=== PATIENT | male | born 2000 | race Caucasian/White ===

== ENCOUNTER → 2020-05-05 14:37 | Outpatient (CLI) | payer OTHER, SELFPAY ==
--- NOTE | 2020-05-05 14:40 | DI.RAD.S_ITS ---
PROCEDURE: XR CHEST 2V INDICATIONS: history of spontaneous pneumothorax TECHNIQUE: 2 views of the chest were acquired. COMPARISON: [facility], CR, XR CHEST 2 VIEWS, 08/09/2017, 14:41. [facility], CR, XR CHEST 1 VIEW, 08/09/2017, 16:55. [facility], CR, XR CHEST 2 VIEWS, 08/13/2017, 15:28. FINDINGS: Surgical changes and devices: None. Lungs and pleura: Lungs are clear. No pleural effusions . Small left apical pneumothorax. Mediastinum: Mediastinal contours are normal. Heart size is normal. Bones and chest wall: No suspicious bony abnormalities. Soft tissues appear unremarkable. IMPRESSION: Small left apical pneumothorax. Critical findings were immediately and personally telephoned and discussed with Indy Merino PAC at 1515 hours 05/05/20 Dictated by: Gt Real M.D. on 05/05/2020 at 14:58 Approved by: Gt Real M.D. on 05/05/2020 at 15:16
== END ==
PROVIDERS: Referring Provider Physician Assistant; Visit Provider Physician Assistant
DX: J93.83 Other pneumothorax (principal); Z87.09 Personal history of other diseases of the respiratory system
CPT/HCPCS: 71046

== ENCOUNTER → 2020-05-08 13:58 | Outpatient (CLI) | payer OTHER, SELFPAY ==
--- NOTE | 2020-05-08 13:59 | DI.RAD.S_ITS ---
PROCEDURE: XR CHEST 2V INDICATIONS: re-evaluate pneumothorax from 05/06 on left TECHNIQUE: 2 views of the chest were acquired. COMPARISON: [facility], , XR CHEST 2V, 05/05/2020, 14:40. FINDINGS: Surgical changes and devices: None. Lungs and pleura: Trace pneumothorax persists, decreased when compared with the study dated May 05, 2020. No new acute airspace opacities or pleural effusion. Mediastinum: Mediastinal contours are normal. Heart size is normal. Bones and chest wall: No suspicious bony abnormalities. Soft tissues appear unremarkable. IMPRESSION: Trace pneumothorax persists, decreased from the prior study. Dictated by: Nayeli Hickman M.D. on 05/08/2020 at 14:27 Approved by: Nayeli Hickman M.D. on 05/08/2020 at 14:28
== END ==
PROVIDERS: Referring Provider Physician Assistant; Visit Provider Physician Assistant
DX: J93.83 Other pneumothorax (principal)
CPT/HCPCS: 71046

== ENCOUNTER 2020-09-05 12:52 | Observation (INO) | payer OTHER, BC, SELFPAY ==
[2020-09-05] VITALS (14 sets, daily range): BP systolic 113–145; BP diastolic 60–92; PULSE 57–86; RESP 12–22; TEMP 36.3–36.7; O2SAT 98–100; BMI 16.9
--- NOTE | 2020-09-05 12:59 | DI.RAD.S_ITS ---
PROCEDURE: XR CHEST 1V INDICATIONS: Flu like symptoms TECHNIQUE: One view of the chest was acquired. COMPARISON: [facility], CR, XR CHEST 2V, 05/08/2020, 13:49. FINDINGS: Surgical changes and devices: None. Lungs and pleura: Lungs are clear. No pleural effusions or pneumothorax. Mediastinum: Mediastinal contours appear normal. Heart size is normal. Bones and chest wall: No suspicious bony lesions. Overlying soft tissues appear unremarkable. IMPRESSION: No evidence acute pulmonary process. Dictated by: Jarrell Carvalho M.D. on 09/05/2020 at 13:29 Approved by: Jarrell Carvalho M.D. on 09/05/2020 at 13:34
--- NOTE | 2020-09-05 13:31 | ED_ITS ---
HPI - General Adult General Chief complaint: Shortness of Breath/Dyspnea Stated complaint: spontaneous pneumothorax Time Seen by Provider: 09/05/20 13:12 Source: patient Mode of arrival: Ambulatory History of Present Illness HPI narrative: 19-year-old gentleman with a history of 5 spontaneous pneumothorax all occurring on the left side each about once a year none of which have required chest tube. He presents with 48 hours of right-sided chest pain. This initially occurred at rest has been present for the past 2 days and not even painful enough to require ibuprofen or Tylenol. Was concerned that it was a another pneumothorax this time on the right side and he presents to the emergency room to see if additional workup would be recommended. He describes no fevers, dyspnea, cough, abdominal pain, palpitations, lower extremity edema. He is slender, 6 ft tall that does not have specific marfans features. There is not a history of spontaneous pneumothorax in his family and he denies tobacco as well as marijuana use. Related Data Home Medications Medication Instructions Recorded Confirmed No Known Home Medications 05/05/20 09/05/20 Allergies Allergy/AdvReac Type Severity Reaction Status Date / Time No Known Drug Allergies Allergy Verified 09/05/20 13:04 Review of Systems Review of Systems ROS Unobtainable: All systems reviewed & are unremarkable except as noted in HPI and below Patient History Medical History History of pneumothorax Social History household members: friend(s) Smoking Status: Never smoker Smoking Status: Never smoker Substance Use Type: does not use Exam Narrative Exam Narrative: General: Healthy appearing, in no acute distress. Able to give a complete and coherent history. Well-nourished well-developed HEENT: Moist mucous membranes, normal sclera with reactive pupils, Neck: No JVD, supple Respiratory: Lungs are clear to auscultation, slight decreased sounds on the right side with a slight respiratory rub mid axillary lower right. No wheezing. No retractions able to speak in full sentences. Chest: No subcutaneous air Cardiac: Regular rate and rhythm no murmurs no bruits Abdomen: Soft, nontender, good bowel tones, no flank pain Skin: Warm and dry, no rashes Neurologic: Grossly neurologically intact with no obvious asymmetries or abnormalities Extremities: No trauma, well perfused Psych: Cooperative, appropriate insight and affect Initial Vital Signs Initial Vital Signs: Vital Signs Temperature 98.0 F 09/05/20 12:56 Pulse Rate 68 09/05/20 12:56 Respiratory Rate 12 09/05/20 12:56 Blood Pressure 145/92 H 09/05/20 12:56 Pulse Oximetry 99 09/05/20 12:56 Course Orders Ordered: ED Orders 09/05/20 12:59 XR chest 1V Stat 09/05/20 14:27 COVID19 Stat Acetaminophen (Acetaminophen 325 Mg Tablet) 650 mg PO Q6HR PRN PRN Reason: Pain, Mild (1-3) Enoxaparin Sodium (Enoxaparin 40 Mg/0.4 Ml Syringe) 40 mg SUBCUT DAILY CASTRO Naloxone HCl (Naloxone 0.4 Mg/Ml Vial) 0.2 mg IV Q2MIN PRN PRN Reason: Opiate Reversal Discontinued Medications Sodium Chloride (Normal Saline 0.9%) 1,000 mls @ 1,000 mls/hr IV BOLUS ONE Stop: 09/05/20 15:29 Last Infusion: 09/05/20 15:41 Dose: 0 mls/hr Documented by: Admin: 09/05/20 14:35 Dose: 1,000 mls/hr Documented by: MALGORZATA Vital Signs Vital signs: Vital Signs - 8 hr 09/05/20 12:56 09/05/20 13:51 09/05/20 14:00 Temperature 98.0 F Pulse Rate 68 65 59 L Respiratory Rate 12 Blood Pressure 145/92 H 125/67 Pulse Oximetry 99 100 100 09/05/20 14:15 09/05/20 14:30 09/05/20 14:45 Temperature Pulse Rate 62 86 63 Respiratory Rate Blood Pressure 122/70 135/81 129/75 Pulse Oximetry 100 100 100 09/05/20 15:00 09/05/20 15:15 Temperature Pulse Rate 57 L 80 Respiratory Rate Blood Pressure 132/80 129/79 Pulse Oximetry 100 98 Medical Decision Making Lab Data Labs: Lab Results 09/05/20 Range/Units 14:27 SARS-CoV-2 (PCR) Negative (Negative) Imaging Data Chest x-ray: Radiologist's Impression: FINDINGS: Surgical changes and devices: None. Lungs and pleura: Lungs are clear. No pleural effusions or pneumothorax. Mediastinum: Mediastinal contours appear normal. Heart size is normal. Bones and chest wall: No suspicious bony lesions. Overlying soft tissues appear unremarkable. IMPRESSION: No evidence acute pulmonary process. Dictated by: Jarrell Carvalho M.D. on 09/05/2020 at 13:29 Approved by: Jarrell Carvalho M.D. on 09/05/2020 at 13:34 ADDENDUM: There is a mild to moderate right apical pneumothorax. Findings were discussed with Dr. Bowen on 09/05/2020 at 1427 hours Dictated by: Jarrell Carvalho M.D. on 09/05/2020 at 14:47 MDM Narrative Medical decision making narrative: 19-year-old gentleman presents with right- sided chest pain that he Is concerned may be a spontaneous pneumothorax. He has had 5 similar episodes all on the left side. None of these have needed to be treated with chest tubes. Initial chest exam does suggest a small right-sided pneumothorax no tension physiology. Care is reviewed with Dr Baires, General surgery. Because symptoms have been present for 48 hours and do not seem to be increasing he will be admitted and observed without chest tube placement at this time. Discharge Plan Departure Patient Disposition: Admitted as Observation Clinical Impression: Spontaneous pneumothorax Admit Date/Time: 09/05/20 15:21 Admit Provider: Deven Patiño
--- NOTE | 2020-09-05 14:31 | PC.NURSE ---
h/o spontaneous pneumonthorax on Left, never on right. Has always resolved w/o intervention.
[2020-09-05] MEDS: SODIUM CHLORIDE 0.9% 1,000 ML 1000 ML IV (14:35)
[2020-09-05 15:02] LABS: COVID19 -Nasal RAPID Negative (Negative)
--- NOTE | 2020-09-05 15:29 | P.HP_ITS ---
History of Present Illness History of Present Illness Date Patient Seen: 09/05/20 Time Patient Seen: 15:29 Date of Onset of Symptoms: 09/03/20 Chief complaint: spontaneous pneumothorax Narrative: Patient is a gentleman who has had multiple spontaneous pneumothoraces on the left side. He has never required a chest tube in usually just stays at home and have set out he says. However he developed shoulder pain and a little shortness of breath 2 days ago. He went to work and came home and basically tolerated this comfort today it has been much more tolerable and the pain when he takes a deep breath has reduced. He came to the emergency room and was found to have a pneumothorax and I was asked to see him. All of his prior pneumothoraces were on the left. This 1 is on the right. He does not smoke. He never has. Patient History Medical History History of pneumothorax Family & Social History Safety & Behavioral: Feels Safe in Current Yes Environment Been Physically Hurt or No Threatened By a Person Tobacco & Substance use: Smoking Status Never smoker Substance Use Type does not use Meds Home Medications and Allergies Home Medications Medication Instructions Recorded Confirmed Type No Known Home Medications 05/05/20 09/05/20 History Allergies Allergy/AdvReac Type Severity Reaction Status Date / Time No Known Drug Allergies Allergy Verified 09/05/20 13:04 Review of Systems Review of Systems Narrative: Patient denies double vision pain is eyes earache sore throats trouble swallowing or tooth aches. No cough cold or asthma. No heart problems or murmurs. No abdominal pain black or bloody bowel movements dysuria or hematuria. No seizures or blackouts. Nose exam id or depression. Is on no medications. Exam Vital Signs (past 8 hours): - 09/05/20 12:56 09/05/20 13:51 09/05/20 14:00 Temperature 98.0 F Pulse Rate 68 65 59 L Respiratory Rate 12 Blood Pressure 145/92 H 125/67 Pulse Oximetry 99 100 100 09/05/20 14:15 09/05/20 14:30 09/05/20 14:45 Temperature Pulse Rate 62 86 63 Respiratory Rate Blood Pressure 122/70 135/81 129/75 Pulse Oximetry 100 100 100 09/05/20 15:00 Temperature Pulse Rate 57 L Respiratory Rate Blood Pressure 132/80 Pulse Oximetry 100 Oxygen Delivery Method Nasal Cannula Oxygen Flow Rate 6 Narrative Exam Narrative: Tall thin 19-year-old in no distress. There was eyes are nonicteric. Pupils equal round reactive to light. Conjunctiva pink ears without lesion. There are no nodes in the neck supraclavicular areas. Trachea is midline mobile. Thyroid is not enlarged. Lungs are clear to auscultation without rales or rhonchi. There might be a slight decrease in breath sounds on the right compared to the left. Good air movement bilaterally. Heart regular rate and rhythm without murmur gallop. Abdomen is scaphoid soft nontender without mass. Liver and spleen are not enlarged. Skin is 2+ texture and turgor no open lesions appreciated.. He is alert and oriented x3. Speech rate and content are appropriate affect is appropriate. Objective Imaging Chest x-ray: My impression: Significant right-sided pneumothorax. Left side normal. No shift of the midline. Labs Labs: Laboratory Results - last 24 hr 09/05/20 14:27 SARS-CoV-2 (PCR) Negative Assessment & Plan Assessment & Plan narrative: Patient with a right-sided spontaneous pneumothorax. Delayed presentation. He has a significant pneumothorax but since we are now at least 2 days into this event, not certain a chest tube was necessary. He is otherwise healthy. Will bring in for observation. X-ray later today. If lung remains at its present level or improved will observe. If it seems to be deteriorating significantly will place a pigtail chest tube. Time Spent With Patient Time with patient: Greater than 35 minutes (Time spent reviewing record an x- rays including reviewing with the radiologist 10 minutes. History physical exam another 20 minutes and 5 minutes to document and 5 minutes to write orders.)
--- NOTE | 2020-09-05 18:00 | DI.RAD.S_ITS ---
PROCEDURE: XR CHEST 1V INDICATIONS: Follow-up on pneumothorax. TECHNIQUE: One view of the chest was acquired. COMPARISON: [facility], CR, XR CHEST 1V, 09/05/2020, 13:09. FINDINGS: Surgical changes and devices: None. Lungs and pleura: Lungs are clear. No change in small right upper lobe pneumothorax. No developing mediastinal shift. Mediastinum: Mediastinal contours appear normal. Heart size is normal. Bones and chest wall: No suspicious bony lesions. Overlying soft tissues appear unremarkable. IMPRESSION: 1. Stable appearance to small right pneumothorax. No evidence of tension. Dictated by: Cara Rodrigues M.D. on 09/05/2020 at 16:43 Approved by: Cara Rodrigues M.D. on 09/05/2020 at 16:45
--- NOTE | 2020-09-05 19:19 | PC.NURSE ---
Approximately 1900 Dr. Baires at bedside, turned off patient's oxygen.
[2020-09-06 05:22] VITALS: BP 123/58; PULSE 52; RESP 16; TEMP 36.4; O2SAT 99
--- NOTE | 2020-09-06 07:27 | DI.RAD.S_ITS ---
PROCEDURE: XR CHEST 1V INDICATIONS: Follow-up pneumothorax TECHNIQUE: One view of the chest was acquired. COMPARISON: [facility], CR, XR CHEST 1V, 09/05/2020, 16:27. FINDINGS: Surgical changes and devices: None. Lungs and pleura: Lungs are clear. No pleural effusions. Right-sided pneumothorax is stable. Mediastinum: Mediastinal contours appear normal. Heart size is normal. Bones and chest wall: No suspicious bony lesions. Overlying soft tissues appear unremarkable. IMPRESSION: Stable right-sided pneumothorax. Dictated by: Grisel Pang MD, PhD on 09/06/2020 at 8:10 Approved by: Grisel Pang MD, PhD on 09/06/2020 at 8:10
--- NOTE | 2020-09-06 07:30 | DI.CT.S_ITS ---
PROCEDURE: CT CHEST W CON INDICATIONS: hx left pneumothorax now with right pneumo TECHNIQUE: After the administration of intravenous contrast, 5 mm thick sections acquired from the pulmonary apices to the posterior costophrenic angles. 1 mm axial lung, 5 mm thick coronal and sagittal reformats and 7 mm axial MIP were acquired. For radiation dose reduction, the following was used: automated exposure control, adjustment of mA and/or kV according to patient size. COMPARISON: [facility], CR, XR CHEST 2 VIEWS, 08/13/2017, 15:28. [facility], CR, XR CHEST 2 VIEWS, 08/09/2017, 14:41. [facility], CR, XR CHEST 1V, 09/05/2020, 13:09. [facility], CR, XR CHEST 1V, 09/05/2020, 16:27. [facility], CR, XR CHEST 1V, 09/06/2020, 5:13. FINDINGS: Image quality: Excellent. Lungs and pleura: There is a small right-sided pneumothorax seen. Mild subpleural bleb formation can be seen at the lung apices, right worse than left, as on series 3, image 33, and on series 5, image 33. There is no left-sided pneumothorax seen. No acute air space opacities. No pleural effusions. Central and peripheral airways are patent and normal in caliber. Mediastinum: Heart size is normal. No pericardial effusion. No mediastinal or hilar adenopathy by size criteria. Thoracic aorta and central pulmonary arteries are normal in size. Esophagus is normal in caliber. No hiatal hernia. Bones and chest wall: No suspicious bony lesions. No vertebral body compression fractures. No axillary or supraclavicular adenopathy by size criteria. Thyroid gland demonstrates no significant abnormality. Abdomen: Visualized upper abdominal solid organs appear normal. Upper abdominal bowel loops are normal in caliber. IMPRESSION: Small right-sided pneumothorax. Subpleural bleb formation can be seen involving both lung apices, right worse than left. Dictated by: Joey Holt M.D. on 09/06/2020 at 8:08 Approved by: Joey Holt M.D. on 09/06/2020 at 8:11
[2020-09-06 08:00] VITALS: BP 128/61; PULSE 73; RESP 17; TEMP 36.6; O2SAT 100
[2020-09-06 08:39] LABS: BUN Creatinine Ratio 15.5 (6-22); Blood Urea Nitrogen 13 mg/dL (9-20); Calcium 9.7 mg/dL (8.4-10.2); Carbon Dioxide 27 mmol/L (22-32); Chloride 104 mmol/L (98-107); Estimated Glomerular Filt Rate > 60.0 mL/min (>60); Glucose 78 mg/dL (70-100); HEMOLYSIS < 15 (0-50); Potassium 3.8 mmol/L (3.4-5.1); Sodium 138 mmol/L (137-145)
[2020-09-06] MEDS: ENOXAPARIN 40 MG/0.4 ML SYRINGE SUBCUT (09:31)
[2020-09-06] MEDS: SODIUM CHLORIDE 0.9% FLUSH 10 ML IV (09:32)
--- NOTE | 2020-09-06 11:54 | CM.DANOTE ---
DCP ASSESSMENT: Patient is a pleasant 19 Year-old male who was admitted for a spontaneous pneumothorax. Patient declines having a PCP. Primary payer sources is [facility], [employer] management. ENVIRONMENTAL SERVICES PROJECT MANAGER Student met with patient at bedside this date, he was alert and oriented x4. Provided education on role of SW and d/c planning and left contact information on white board. Patient enquired about how to establish a PCP for future follow-up visits. Provided a list of local providers to patient. Patient reported he is independent with ADL?s including driving. Patient?s father Skyler Monteiro will provide transportation at time of D/C. Patient anticipates D/C home when stable. PLAN: Anticipate D/C home when medically stable. CM Team to continue to follow. LAQUITA Gaytan MSW Student Discharge Planning/Care Management CM Discharge Assessment Start: 09/06/20 10:50 Freq: Status: Active Protocol: Document 09/06/20 10:50 AL (Rec: 09/06/20 10:53 AL [id number]) Discharge Planning Assessment Assigned Admissions Gate Attendant LAQUITA Dickens Student Contact Information Skyler Monteiro, # [phone] Advance Directives? No History Provided By Patient,Medical Record Has Patient been admitted in last 30 No days? Prior Living Arrangements Apartment/Condo Household Members friend(s) Type of transporation used prior to Drives own vehicle admit Independent with ADL's Yes Is patient alert and oriented? Yes Caregiver for Another No Barriers to Discharge No Discharge Plan Home Transportation Arrangement Patients father Skyler Monteiro will provide transportation upon D/C Referrals Initiated None needed Whiteboard Updated in Patient Room with Yes name and ext. # of Admissions Gate Attendant
[2020-09-06 12:00] VITALS: BP 120/77; PULSE 98; RESP 17; TEMP 36.7; O2SAT 97
--- NOTE | 2020-09-06 14:32 | PC.NURSE ---
Discharge: Feels ready to d/c home. has been up and amb indep in room, gait steady. O2 sat is usually 100%. No sob. Seen by Dr. Patiño and given d/c instructions. Reviewed d/c packet. Reviewed sxs of pneumo, pt is aware his pneumo has not resolved. He is to immed return to the ED for any sob, sxs of his pneumo worsening. He verb understanding. Pt d/c home via auto.
--- NOTE | 2020-09-06 15:30 | P.DS_ITS ---
History of Present Illness History of Present Illness Chief complaint: spontaneous pneumothorax Narrative: Patient is a gentleman who has had multiple spontaneous pneumothoraces on the left side. He has never required a chest tube. He usually just stays at home initially and comes in and out delayed fashion.. However he developed shoulder pain and a little shortness of breath 2 days ago. He went to work and came home and basically tolerated this comfort. Today it has been much more tolerable and the pain when he takes a deep breath has reduced. He came to the emergency room and was found to have a pneumothorax and I was asked to see him. All of his prior pneumothoraces were on the left. This 1 is on the right. He does not smoke. He never has. Discharge Providers Provider Date of admission: 09/05/20 15:21 Discharge Date: 09/06/20 Primary care physician: Doctor Francisca MD Consults: 09/05/20 16:17 Consult to Discharge Planning Routine Comment: Discharge provider: Deven Patiño MD Summary Hospital Course Discharge Diagnosis: Spontaneous pneumothorax Hospital Course: The patient was admitted. Because of his delayed presentation I have followed him with serial x-rays and there was no significant increase in this pneumothorax. Because he has had bilateral spontaneous pneumothoraces, the left side being multiply recurrent, I was concerned about the possibility of bilateral lung collapse which could be a very lethal process. A CT scan was performed to evaluate his lungs and he was found to have bilateral apical blebs. These appeared to be limited only to the apices of both lungs. He was offered surgical intervention with a pleurodesis and resection of the bleb area but he wanted to talk with the specialist, specifically a machine shop apprentice and he had the name of 1 for me to refer him to. This was done at his request. I spoke with him about the consequences of not treating his pneumothoraces and his delayed presentation on the possibility of this being a lethal approach to this problem. I explained to him all the chest can shift and cut off blood supply to his heart. I also explained to him that should he developed bilateral pneumothoraces from some process that this too could be a lethal problem especially if it occurred where he had no medical care available. I strongly encouraged him to return to the emergency room should any symptoms develop or worsen. He appeared to understand all of this and wishes to be discharged and follow-up. The office of the machine shop apprentice he requested, Dr. Deion Barnett, was contacted and referral made. They will contact him with an appointment. The patient was advised to avoid flying, trips over [place], and scuba diving for now. Status at Discharge Functional status at discharge: independent ambulation Overall status at discharge: patient is back to baseline Time Spent with Patient Time spent: Greater than 30 minutes Exam Vital Signs (past 8 hours): - 09/06/20 08:00 09/06/20 12:00 Temperature 97.8 F 98.1 F Pulse Rate 73 98 H Respiratory Rate 17 17 Blood Pressure 128/61 120/77 Pulse Oximetry 100 97 Oxygen Delivery Method Room Air Oxygen Flow Rate 0 Objective Labs Result Diagrams: 09/06/20 08:16 09/06/20 08:16 Labs: Laboratory Results - last 24 hr 09/06/20 08:16 Sodium 138 Potassium 3.8 Chloride 104 Carbon Dioxide 27 BUN 13 Creatinine 0.84 Estimated GFR > 60.0 BUN/Creatinine Ratio 15.5 Glucose 78 Calcium 9.7 PFSH Medical History History of pneumothorax Social History household members: friend(s) Smoking Status: Never smoker Discharge Plan Discharge Plan Patient Disposition: Home Provider Discharge Comment: You had a right-sided pneumothorax (lung collapse). It is not completely resolved. Should you redevelop symptoms come to the emergency room immediately. You have bilateral bleb disease which puts you at risk of collapse in both lungs and of . As per your request I will try to get you in to see a machine shop apprentice as soon as possible. Discharge orders & Medications Prescriptions: No Action No Known Home Medications RF: 0 Follow up/Referrals: Francisca,MD Rylan [Primary Care Provider] - Deven Patiño MD [Physician] - 1 Week (If you need to reach a doctor please call our office. If it is after hours listen to the message and you will be instructed how to page the doctor on-call for our practice. Have a pen and paper ready.) Diet/Activity/Treatments Diet: Diet as Tolerated Activity: Do not fly ago [place]. Also do not scuba dive Skin/Wound/Dressing Care Report to your healthcare provider any signs of infection, such as:: increased pain Visit Report/Discharge Packet Instructions: DI for Pneumothorax Discharge Data Primary Care Provider: Francisca,Doctor Attending Provider: Deven Patiño
== END 2020-09-06 14:30 | disposition home or self-care (01) ==
LOC: ED 13:12 → AC 15:24
PROVIDERS: Admitting Provider Specialist; Emergency Provider Emergency Medicine; Referring Provider Emergency Medicine; Visit Provider Specialist
DX: J93.83 Other pneumothorax (principal); Z20.822 Contact with and (suspected) exposure to COVID-19
CPT/HCPCS: 71045; 71260; 80048; 87635; 96360; 96372; 99217; 99219; 99284; C9803; G0378; J1650; Q9967

== ENCOUNTER → 2021-11-21 16:30 | Outpatient (CLI) | payer OTHER, SELFPAY ==
[2020-09-05 17:00] VITALS: BMI 16.9
[2021-11-21 17:00] LABS: COVID19 -Nasal RAPID Negative (Negative)
== END ==
PROVIDERS: Visit Provider Physician Assistant
DX: Z20.822 Contact with and (suspected) exposure to COVID-19 (principal); J31.2 Chronic pharyngitis
CPT/HCPCS: 87070; 87635

== ENCOUNTER → 2021-12-07 14:27 | Outpatient (CLI) | payer OTHER, SELFPAY ==
[2020-09-05 17:00] VITALS: BMI 16.9
--- NOTE | 2021-12-07 14:30 | DI.RAD.S_ITS ---
PROCEDURE: XR CHEST 2V INDICATIONS: History of lung colapse TECHNIQUE: 2 views of the chest were acquired. COMPARISON: [facility], CR, XR CHEST 1V, 09/06/2020, 5:13. FINDINGS: Surgical changes and devices: None. Lungs and pleura: Lungs are clear. No pleural effusions or pneumothorax. Right upper lobe surgical clips and bilateral pulmonary suture lines Mediastinum: Mediastinal contours are normal. Heart size is normal. Bones and chest wall: No suspicious bony abnormalities. Soft tissues appear unremarkable. IMPRESSION: 1. No evidence of pneumothorax. 2. Bilateral upper lobe suture line and surgical clips Approved by: Toni Valle M.D. on 12/07/2021 at 14:37
== END ==
PROVIDERS: PCP Family Medicine; Referring Provider Nurse Practitioner Family; Visit Provider Nurse Practitioner Family
DX: J93.83 Other pneumothorax (principal); Z87.09 Personal history of other diseases of the respiratory system
CPT/HCPCS: 71046

== ENCOUNTER → 2022-04-05 16:39 | Outpatient (CLI) | payer OTHER, SELFPAY ==
[2020-09-05 17:00] VITALS: BMI 16.9
== END ==
PROVIDERS: PCP Family Medicine; Visit Provider Nurse Practitioner Family
DX: J02.9 Acute pharyngitis, unspecified (principal)
CPT/HCPCS: 87070

== ENCOUNTER → 2024-05-11 13:48 | Outpatient (CLI) | payer OTHER, SELFPAY ==
[2020-09-05 17:00] VITALS: BMI 16.9
[2024-05-11 16:25] LABS: Hepatitis B Surface Antigen NEGATIVE s/c (NEGATIVE)
[2024-05-11 16:28] LABS: Urine N gonorrhoeae NOT DETECTED
[2024-05-11 16:40] LABS: HIV 1 & 2 Ab/Ag 4th Gen Combo NEGATIVE (NEGATIVE); Hep C Virus Ab w/Reflex Quant NEGATIVE s/c (NEGATIVE)
[2024-05-11 16:47] LABS: Urine Chlamydia NOT DETECTED
[2024-05-13 02:08] LABS: RPR Screen Non Reactive (Non Reactive)
== END ==
PROVIDERS: PCP Family Medicine; Referring Provider Nurse Practitioner Family; Visit Provider Nurse Practitioner Family
DX: R30.0 Dysuria (principal); N48.89 Other specified disorders of penis
CPT/HCPCS: 36415; 86592; 86695; 86696; 86803; 87086; 87340; 87389; 87491; 87591